=== PATIENT | female | born 1970 | race Caucasian/White ===

== ENCOUNTER 2019-08-26 16:16 | Emergency (ER) | payer BC, OTHER ==
[2019-08-26] MEDS ORDERED: XYLOCAINE 1% HCL 20 ML MDV ONE (16:40)
[2019-08-26] MEDS ORDERED: Adacel Vial IM ONE ×2 (17:06→17:12)
--- NOTE | 2019-08-26 17:06 | ERPHSYRPT ---
- History of Present Illness Time Seen by Provider: 08/26/19 16:35 Patient Subjective Stated Complaint: "I cut my finger doing dishes." Triage Nursing Assessment: Pt presents alert et oriented x3 answering questions appropriately. Pt reported cutting her finger doing dishes at home. Pt presented with 2cm right angle laceration to the posterior aspect of the right hand. BLeeding controlled at time of presentation. Laceration cleaned with sterile saline. Pulse, motor, sensory intact in the right hand with full ROM noted. Physician History: Is a 48-year-old female who was washing glasses when she suffered a laceration to the ulnar aspect of the lateral right hand at the level of the 5 fifth metacarsophalangeal joint. Unable to control the bleeding the injury resulted in a nearly circular laceration with the base proximal. Timing/Duration: today Quality: painful Severity: moderate Location: hands Allergies/Adverse Reactions: No Known Drug Allergies Allergy (Unverified 08/26/19 16:31) Hx Tetanus, Diphtheria Vaccination/Date Given: No Hx Influenza Vaccination/Date Given: Yes Hx Pneumococcal Vaccination/Date Given: No Immunizations Up to Date: No Travel Risk - International Travel Have you traveled outside of the country in past 3 weeks: No - Coronavirus Screening Are you exhibiting any of the following symptoms?: No Close contact with a COVID-19 positive Pt in past 14-21 Days: No - Review of Systems Constitutional: No Fever, No Chills Eyes: No Symptoms Ears, Nose, & Throat: No Symptoms Respiratory: No Cough, No Dyspnea Cardiac: No Chest Pain, No Edema, No Syncope Abdominal/Gastrointestinal: No Abdominal Pain, No Nausea, No Vomiting, No Diarrhea Genitourinary Symptoms: No Dysuria Musculoskeletal: No Back Pain, No Neck Pain Skin: Other (Laceration), No Rash Neurological: No Dizziness, No Focal Weakness, No Sensory Changes Psychological: No Symptoms Endocrine: No Symptoms All Other Systems: Reviewed and Negative - Past Medical History Pertinent Past Medical History: Yes Female Reproductive Disorders: Cervical Cancer - Past Surgical History Past Surgical History: Yes Female Surgical History: Section Other Surgical History: Uterine ablasion - Social History Smoking Status: Current every day smoker Exposure to second hand smoke: No Drug Use: none Patient Lives Alone: Yes - Female History Hx Now: No (Ablasion in 2006) - Nursing Vital Signs Nursing Vital Signs: Initial Vital Signs Temperature 98 F 08/26/19 16:16 Pulse Rate 90 06/26/20 16:16 Respiratory Rate 18 08/26/19 16:16 Blood Pressure 193/93 08/26/19 16:16 O2 Sat by Pulse Oximetry 97 08/26/19 16:16 - Physical Exam General Appearance: mild distress, alert Eye Exam: PERRL/EOMI, eyes nml inspection Ears, Nose, Throat Exam: normal ENT inspection, pharynx normal, moist mucous membranes Neck Exam: normal inspection, non-tender, supple, full range of motion Respiratory Exam: normal breath sounds, lungs clear, No respiratory distress Cardiovascular Exam: regular rate/rhythm, normal heart sounds Gastrointestinal/Abdomen Exam: soft, mass, No tenderness Back Exam: normal inspection, normal range of motion, No CVA tenderness, No vertebral tenderness Extremity Exam: normal inspection, normal range of motion Neurologic Exam: alert, oriented x 3, cooperative, normal mood/affect, sensation nml, No motor deficits Skin Exam: normal color, warm, dry, other (Patient has a laceration lateral aspect of the right hand ulnar side over the fifth metacarpal phalangeal joint area circular in general shape with the base proximal) SpO2 Interpretation: normal SpO2: 97 Procedures - Laceration/Wound Repair Right Hand Wound Location: Right, hand Wound Length (cm): 2.75 Wound's Depth, Shape: superficial, irregular Wound Explored: no foreign body noted Irrigated: Yes Hibiclens Prep: Yes Anesthesia: local, 1% Lidocaine Volume Anesthetic (ccs): 3 Wound Debrided: minimal Wound Repaired With: sutures Suture Size/Type: 5-0, nylon Number of Sutures: 7 Layer Closure?: No Sterile Dressing Applied?: Yes Splint Applied?: No Sling Applied?: No - Course Nursing assessment & vital signs reviewed: Yes Ordered Tests: Medication Summary Discontinued Medications Generic Name Dose Route Start Last Admin Trade Name Freq PRN Reason Stop Dose Admin Lidocaine HCl Confirm 08/26/19 16:40 Xylocaine 1% Hcl 20 Ml Mdv Administered 08/26/19 16:41 Dose 1 ml .ROUTE .STK-MED ONE - Progress Progress: improved - Departure Departure Disposition: Home Clinical Impression: Hand laceration Condition: Stable Critical Care Time: No Referrals: MADI ENGLISH MD [Primary Care Provider] - Instructions: Laceration Repair With Stitches (DC)
[2019-08-26 17:23] VITALS: BP 152/88; PULSE 82; O2SAT 98
== END 2019-08-26 17:24 | disposition home or self-care (01) ==
LOC: ED 16:16
DX: S61.411A Laceration without foreign body of right hand, initial encounter (principal); W25.XXXA Contact with sharp glass, initial encounter; Y93.89 Activity, other specified; Y92.89 Other specified places as the place of occurrence of the external cause
CPT/HCPCS: 12001; 90471; 90715; 99283